=== PATIENT | female | born 1995 | race Hispanic/Latino ===

== ENCOUNTER 2021-01-04 05:45 | Emergency (ER) | payer BC ==
[2021-01-04 06:21] VITALS: BP 126/70
--- NOTE | 2021-01-04 07:28 | Emergency Department Report ---
ED Lower Extremity HPI - General Chief Complaint: Fall Stated Complaint: LEFT KNEE INJURY Source: patient Mode of arrival: Ambulatory Limitations: Physical Limitation - History of Present Illness Initial Comments: 25-year-old female with a history of bipolar anxiety asthma depression presents to the emergency room complaining of left knee pain. Patient states that she had fallen up approximately 5:00 AM this morning and landed on her left knee. Patient denies any other injuries. She states that the pain is worse when she bends. Patient states she has noticed that is swelling and it feels like something is broken or loose. Patient reports her last menstrual period was 12/31/2020. Patient states that she is compliant in all her medications. Patient states that she did take some pain medicine earlier today. MD Complaint: knee injury -: This morning Time: 05:00 Injury: Knee: Left Type of Injury: blunt Place: home Severity scale (0 -10): 5 Improves With: other (Extension) Worsens With: other (Bending knee) Context: fall Associated Symptoms: swelling, able to partially bear weight - Related Data Allergies Allergy/AdvReac Type Severity Reaction Status Date / Time peanut Allergy Unknown Verified 01/04/21 06:23 pecan nut Allergy Unknown Verified 01/04/21 06:23 Penicillins Allergy Unknown Verified 01/04/21 06:23 shellfish derived Allergy Unknown Verified 01/04/21 06:23 seasonal allergies Allergy Unknown Uncoded 01/04/21 06:23 ED Review of Systems ROS: Stated complaint: LEFT KNEE INJURY Other details as noted in HPI Comment: All other systems reviewed and negative ED Past Medical Hx - Past Medical History Previous Medical History?: Yes Hx Asthma: Yes - Surgical History Past Surgical History?: Yes Additional Surgical History: cheeks ED Physical Exam - General Limitations: Physical Limitation General appearance: alert, in no apparent distress - Head Head exam: Present: atraumatic, normocephalic - Eye Eye exam: Present: normal appearance - ENT ENT exam: Present: normal external ear exam - Neck Neck exam: Present: normal inspection, full ROM - Respiratory Respiratory exam: Absent: accessory muscle use - Cardiovascular Cardiovascular Exam: Present: regular rate - Expanded Lower Extremity Exam Left Hip exam: Present: normal inspection Upper Leg exam: Present: normal inspection Knee exam: Present: full ROM, tenderness, swelling, abrasion Lower Leg exam: Present: normal inspection, full ROM. Absent: tenderness, swelling, erythema, palpable cord, Sandy's sign Ankle exam: Present: normal inspection, full ROM Foot/Toe exam: Present: normal inspection Neuro vascular tendon exam: Present: no vascular compromise Gait: Positive: observed and limited by pain - Back Exam Back exam: Present: normal inspection - Neurological Exam Neurological exam: Present: alert, oriented X3 - Psychiatric Psychiatric exam: Present: normal affect, normal mood - Skin Skin exam: Present: warm, dry, intact, normal color. Absent: rash ED Course Vital Signs 01/04/21 06:20 Temperature 98.3 F Pulse Rate 96 H Respiratory 18 Rate Blood Pressure 126/70 [Left] O2 Sat by Pulse 96 Oximetry ED Lower Extremity MDM - Radiology Data Radiology results: report reviewed My Comment(s) Study Comments [facility] [address] [place] [address] XRay Report Signed Patient: JAMIE MURRY MR#: [id number] : 1995 Acct:[id number] Age/Sex: 25 / F ADM Date: 01/04/21 Loc: ED Attending Dr: Ordering Physician: DAMARI SORENSON Date of Service: 01/04/21 Procedure(s): XR knee 3V LT Accession Number(s): [id number] cc: DAMARI SORENSON Fluoro Time In Minutes: LEFT KNEE 3 VIEWS INDICATION / CLINICAL INFORMATION: Fall, pain swelling COMPARISON: None available. FINDINGS: BONES / JOINT(S): No acute fracture or subluxation. No significant arthritis. SOFT TISSUES: No significant abnormality. ADDITIONAL FINDINGS: None. Signer Name: Gamal Hooks MD Signed: 01/04/2021 7:48 AM Workstation Name: [id number] Transcribed By: SS Dictated By: Gamal Hooks MD Electronically Authenticated By: Gamal Hooks MD Signed Date/Time: 01/04/21747 DD/ 6 TD/TT: - Medical Decision Making 25-year-old female with a history of bipolar anxiety asthma depression presents to the emergency room complaining of left knee pain. Patient states that she had fallen up approximately 5:00 AM this morning and landed on her left knee. Patient denies any other injuries. She states that the pain is worse when she bends. Patient states she has noticed that is swelling and it feels like something is broken or loose. Patient reports her last menstrual period was 12/31/2020. Patient states that she is compliant in all her medications. Patient states that she did take some pain medicine earlier today. X-ray of left knee has been ordered ice pack given. X-ray of left knee shows no acute fractures or abnormalities. Patient be placed in an Víctor bandage and discharged home instructed to take ibuprofen or Tylenol for pain management. Critical care attestation.: If time is entered above; I have spent that time in minutes in the direct care of this critically ill patient, excluding procedure time. ED Disposition Clinical Impression: Injury of left knee Qualifiers: Encounter type: initial encounter Qualified Code(s): S89.92XA - Unspecified injury of left lower leg, initial encounter Disposition: TO HOME OR SELFCARE Is pt being admited?: No Does the pt Need Aspirin: No Condition: Stable Instructions: Knee Sprain, Adult, [id number] Additional Instructions: X-ray of left knee shows no acute abnormalities. Placed in a Víctor bandage for your knee. Ibuprofen or Tylenol continue with ice 20 minutes on every hour for the next 24 hours. I placed a referral for orthopedics if you feel you need to follow-up. Referrals: NICHOL MATUTE MD [Staff Physician] - 3-5 Days Forms: Work/School Release Form(ED)
--- NOTE | 2021-01-04 07:52 | XRay Report ---
LEFT KNEE 3 VIEWS INDICATION / CLINICAL INFORMATION: Fall, pain swelling COMPARISON: None available. FINDINGS: BONES / JOINT(S): No acute fracture or subluxation. No significant arthritis. SOFT TISSUES: No significant abnormality. ADDITIONAL FINDINGS: None. Signer Name: Gamal Hooks MD Signed: 01/04/2021 7:48 AM Workstation Name: [id number]
== END 2021-01-04 08:47 | disposition home or self-care (01) ==
LOC: ED 05:45
DX: S89.92XA Unspecified injury of left lower leg, initial encounter (principal); J45.909 Unspecified asthma, uncomplicated; Z98.890 Other specified postprocedural states; Z91.010 Allergy to peanuts; Z91.013 Allergy to seafood; Z88.0 Allergy status to penicillin; Z91.09 Other allergy status, other than to drugs and biological substances; W19.XXXA Unspecified fall, initial encounter; Y93.89 Activity, other specified; Y92.89 Other specified places as the place of occurrence of the external cause; Y99.8 Other external cause status
CPT/HCPCS: 99283